=== PATIENT | male | born 1965 | race Caucasian/White ===

== ENCOUNTER 2022-09-21 16:47 | Emergency (ER) | payer OTHER ==
[~2022-09-21] VITALS: Ht 185.4 cm; Wt 86.2 kg
[~2022-09-21 16:47] MED LIST: BENZ1 PO; DIPATR PO; FLUP5 PO; HYDACE5 PO; IBUP600 PO; NAPR500 PO; PENVK500 PO
[2022-09-21] MEDS ORDERED: Amoxicillin500 MG PO (17:29)
== END 2022-09-21 17:32 | disposition home or self-care (01) ==
LOC: ER 16:47
DX: K04.7 Periapical abscess without sinus (principal); F17.200 Nicotine dependence, unspecified, uncomplicated
CPT/HCPCS: 99282